=== PATIENT | male | born 1990 | race Two or more races ===

== ENCOUNTER → 2021-04-14 | Emergency (ER) | payer OTHER ==
[~2021-04-14] VITALS: Ht 175.3 cm; Wt 95.3 kg
[~2021-04-14] MED LIST: PANADOL
== END | disposition home or self-care (01) ==
LOC: ER 17:36
DX: U07.1 COVID-19 (principal)

== ENCOUNTER 2021-04-15 11:45 | Outpatient (CLI) | payer OTHER | END 2021-04-15 12:45 | disposition home or self-care (01) | LOC: ASH CLINIC 11:45 | PROVIDERS: ATTEND Emergency Medicine | DX: Z23 Encounter for immunization (principal); U07.1 COVID-19 ==

== ENCOUNTER 2021-06-05 13:26 | Outpatient (CLI) | payer OTHER | END 2021-06-05 13:33 | disposition home or self-care (01) | LOC: RAD 13:26 | PROVIDERS: ATTEND Family Medicine | DX: S63.681A Other sprain of right thumb, initial encounter (principal); M79.641 Pain in right hand ==

== ENCOUNTER 2021-08-10 08:00 | Outpatient (CLI) | payer OTHER | END 2021-08-10 08:30 | disposition home or self-care (01) | LOC: PPH VACUNA 08:00 | PROVIDERS: ATTEND Emergency Medicine Pediatric Emergency Medicine | DX: Z23 Encounter for immunization (principal) ==

== ENCOUNTER 2025-03-21 09:40 | Outpatient (CLI) | payer OTHER | END 2025-03-21 10:00 | disposition home or self-care (01) | LOC: MRI 09:40 → SONOGRAMA 09:40 → MRI 10:00 | DX: S99.922S Unspecified injury of left foot, sequela (principal); X58.XXXS Exposure to other specified factors, sequela | CPT/HCPCS: 73721 ==